=== PATIENT | female | born 1960 | race Caucasian/White ===

== ENCOUNTER 2023-04-18 05:00 | Inpatient (IN) | payer BC ==
[2023-04-12 12:20] LABS: BASOPHILS # (AUTO) 0.1 K/uL (0.0-0.2); BASOPHILS % (AUTO) 1.4 % (0.0-2.0); EOSINOPHILS # (AUTO) 0.1 K/uL (0.0-0.4); EOSINOPHILS % (AUTO) 2.3 % (0.0-4.0); HEMATOCRIT 33.3 % (36-48); HEMOGLOBIN 10.8 g/dL (12.0-16.0); LYMPHOCYTES % (AUTO) 20.4 % (20.5-51.5); MEAN CORPUSCULAR HEMOGLOBIN 29 pg (27-31); MEAN CORPUSCULAR HGB CONC 32 % (32-36); MEAN CORPUSCULAR VOLUME 90 fL (79.0-98.0); MONOCYTES # (AUTO) 0.6 K/uL (0.0-1.0); NEUTROPHILS # (AUTO) 3.1 K/uL (1.8-7.7); NEUTROPHILS % (AUTO) 62.9 % (40.0-70.0); PLATELET COUNT (AUTO) 189 K/uL (130-430); RED CELL DISTRIBUTION WIDTH 12.9 % (9.0-15.0); WHITE BLOOD COUNT (AUTO) 4.9 K/uL (4.8-10.8)
[2023-04-12 12:39] LABS: PROTHROMBIN TIME 10.5 SECS (9.5-12.5)
[2023-04-12 12:40] LABS: ALBUMIN 3.7 g/dL (3.4-4.8); CALCIUM 10.8 mg/dL (8.4-11.0); CREATININE 7.11 mg/dL (0.55-1.30); POTASSIUM 3.5 mmol/L (3.5-5.1); TOTAL BILIRUBIN 0.5 mg/dL (0.0-1.0); TOTAL PROTEIN, SERUM 6.4 g/dL (6.4-8.3)
[~2023-04-18] VITALS: Ht 170.2 cm; Wt 68.0 kg
[2023-04-18] VITALS (8 sets, daily range): BP systolic 112–152; PULSE 48–106; RESP 16–18; TEMP 97–98; O2SAT 95–98
[2023-04-18] MEDS ORDERED: CELECOXIB 100 MG CAPSULE ONE (05:20)
[2023-04-18] MEDS ORDERED: SCOPOLAMINE HYDROBROMIDE 1 MG PATCH .72 H (TRANSDERM-SCOP) TD ONE ×2 (05:32→07:00)
[2023-04-18] MEDS ORDERED: ceFAZolin SODIUM 2 GM in D5W 100 ML IV ONE (07:00)
[2023-04-18] MEDS ORDERED: CELECOXIB 100 MG CAPSULE PO ONE (07:00)
[2023-04-18] MEDS ORDERED: GABAPENTIN 400 MG CAPSULE PO ONE (07:00)
[2023-04-18] MEDS ORDERED: oxyCODONE HCL 10 MG TAB.ER.12H PO ONE ×2 (07:00→07:12)
[2023-04-18] MEDS ORDERED: TRANEXAMIC ACID 1,000 MG/10 ML VIAL ONE (07:15)
[2023-04-18] MEDS ORDERED: DEXAMETHASONE SOD PHOSPHATE 4 MG/ML VIAL ONE (07:15)
[2023-04-18] MEDS ORDERED: KETOROLAC TROMETHAMINE 30 MG VIAL ONE (07:15)
[2023-04-18] MEDS ORDERED: GLYCOPYRROLATE 0.2 MG/ML VIAL ONE (07:15)
[2023-04-18] MEDS ORDERED: ONDANSETRON HCL 4 MG/2 ML VIAL ONE (07:15)
[2023-04-18] MEDS ORDERED: WATER FOR IRRIGATION,STERILE 1,000 ML IRRIG.SOLN IR ONE (07:15)
[2023-04-18] MEDS ORDERED: MIDAZOLAM HCL/PF 2 MG/2 ML SYRINGE ONE (07:15)
[2023-04-18] MEDS ORDERED: BUPIVACAINE /PF 0.5% 30 ML VIAL ONE (07:15)
[2023-04-18] MEDS ORDERED: MORPHINE SULFATE 10MG/10ML PF AMP ONE (07:15)
[2023-04-18] MEDS ORDERED: BUPIVACAINE /PF 0.75% 10 ML VIAL INJ ONE (07:15)
[2023-04-18] MEDS ORDERED: NS 1000 ML IV.SOLN IV ONE (07:15)
[2023-04-18] MEDS ORDERED: VANCOMYCIN HCL 1000 MG/VIAL IV ONE (07:15)
[2023-04-18] MEDS ORDERED: NS IRRIG SOLN 1000 ML IR ONE (07:15)
[2023-04-18] MEDS ORDERED: METOCLOPRAMIDE HCL 10 MG/2 ML VIAL IVP PRN ×2 (08:30→09:45)
[2023-04-18] MEDS ORDERED: HYDROmorphone 1 MG/ML INJ. CARTRIDGE IVP PRN ×5 (08:30→11:00)
[2023-04-18] MEDS ORDERED: ONDANSETRON HCL 4 MG/2 ML VIAL IVP PRN ×2 (08:30→11:45)
[2023-04-18] MEDS ORDERED: NALOXONE HCL 0.4 MG/ML AMP (NARCAN) IVP PRN (08:30)
[2023-04-18] MEDS ORDERED: NACL 0.9% 1,000 ML IV SCH (08:30)
[2023-04-18] MEDS ORDERED: DIPHENHYDRAMINE INJ 50 MG/ML VIAL IVP PRN (08:30)
[2023-04-18] MEDS ORDERED: MEPERIDINE HCL/PF 25 MG/ML DISP.SYRIN IVP PRN (08:30)
[2023-04-18] MEDS ORDERED: MIDAZOLAM HCL 2 MG/2 ML VIAL (VERSED) IVP PRN (08:30)
[2023-04-18] MEDS ORDERED: DIPHENHYDRAMINE HCL 25 MG CAPSULE PO PRN (09:45)
[2023-04-18] MEDS ORDERED: LACTULOSE 20 GM/30 ML UDC PO PRN (09:45)
[2023-04-18] MEDS ORDERED: BISACODYL 10 MG/SUPPOSITORY RC PRN (09:45)
[2023-04-18] MEDS ORDERED: DIAZ2TAB3 PO (09:56)
[2023-04-18] MEDS ORDERED: CALC0.5C11 PO (09:56)
[2023-04-18] MEDS ORDERED: HYDR200T80 PO (09:56)
[2023-04-18] MEDS ORDERED: LOSA-415 PO (09:56)
[2023-04-18] MEDS ORDERED: TOCI80VI IV (09:56)
[2023-04-18] MEDS ORDERED: traMADol HCL HCL 50 MG TABLET (ULTRAM) PO PRN (11:00)
[2023-04-18] MEDS ORDERED: LORATADINE 10 MG TABLET PO PRN (11:00)
[2023-04-18] MEDS ORDERED: DIAZEPAM 2 MG TABLET (VALIUM) PO PRN (13:45)
[2023-04-18] MEDS: ACETAMINOPHEN 500 MG TABLET PO SCH ×2 (14:12→21:10)
[2023-04-18] MEDS: KETOROLAC TROMETHAMINE 10 MG TABLET (TORADOL) PO SCH ×2 (15:00→23:00)
[2023-04-18] MEDS: ceFAZolin SODIUM 2 GM in D5W 50 ML IV SCH ×2 (15:15→22:32)
[2023-04-18] MEDS ORDERED: NON-FORMULARY MEDICATION (Losartan Potassium (Cozaar) 100 MG) PO SCH (21:00)
[2023-04-18] MEDS: SENNOSIDES/DOCUSATE SODIUM 1 TAB TABLET(SENOKOT-S) PO SCH (21:03)
[2023-04-18] MEDS: LOSARTAN POTASSIUM 50 MG TABLET (COZAAR) PO SCH (21:05)
[2023-04-19] VITALS (7 sets, daily range): BP systolic 107–144; PULSE 47–61; RESP 15–19; TEMP 96.9–98.9; O2SAT 96–98
[2023-04-19 05:08] LABS: BASOPHILS % (AUTO) 0.1 % (0.0-2.0); EOSINOPHILS % (AUTO) 0.1 % (0.0-4.0); HEMATOCRIT 28.7 % (36-48); HEMOGLOBIN 9.2 g/dL (12.0-16.0); LYMPHOCYTES # (AUTO) 0.7 K/uL (1.0-5.5); LYMPHOCYTES % (AUTO) 9.4 % (20.5-51.5); MEAN CORPUSCULAR HEMOGLOBIN 29 pg (27-31); MEAN CORPUSCULAR HGB CONC 32 % (32-36); MEAN CORPUSCULAR VOLUME 90 fL (79.0-98.0); MONOCYTES # (AUTO) 0.7 K/uL (0.0-1.0); MONOCYTES % (AUTO) 9.5 % (1.7-9.3); NEUTROPHILS # (AUTO) 5.9 K/uL (1.8-7.7); NEUTROPHILS % (AUTO) 80.9 % (40.0-70.0); PLATELET COUNT (AUTO) 140 K/uL (130-430); WHITE BLOOD COUNT (AUTO) 7.3 K/uL (4.8-10.8)
[2023-04-19 05:34] LABS: CALCIUM 9.5 mg/dL (8.4-11.0); CREATININE 6.55 mg/dL (0.55-1.30); POTASSIUM 4.3 mmol/L (3.5-5.1)
[2023-04-19] MEDS: ACETAMINOPHEN 500 MG TABLET PO SCH ×3 (06:00→21:38)
[2023-04-19] MEDS: KETOROLAC TROMETHAMINE 10 MG TABLET (TORADOL) PO SCH (06:04)
[2023-04-19] MEDS: ceFAZolin SODIUM 2 GM in D5W 50 ML IV SCH (06:06)
[2023-04-19] MEDS: oxyCODONE HCL 5 MG TABLET PO PRN ×4 (06:08→20:20)
[2023-04-19] MEDS ORDERED: CALCITRIOL 0.5 MCG PO SCH (09:00)
[2023-04-19] MEDS: ASPIRIN 81 MG TAB.CHEW PO SCH ×2 (09:01→20:19)
[2023-04-19] MEDS: calcitrioL 0.25 MCG CAPSULE PO SCH (09:01)
[2023-04-19] MEDS: SENNOSIDES/DOCUSATE SODIUM 1 TAB TABLET(SENOKOT-S) PO SCH ×2 (09:05→20:19)
[2023-04-19] MEDS: CELECOXIB 200 MG CAPSULE PO SCH (11:12)
[2023-04-19] MEDS ORDERED: cephALEXin 500 MG CAPSULE PO ONE (20:00)
[2023-04-19] MEDS: LOSARTAN POTASSIUM 50 MG TABLET (COZAAR) PO SCH (20:19)
[2023-04-19] MEDS ORDERED: TAMSULOSIN HCL 0.4 MG CAP PO SCH (21:00)
[2023-04-20 00:24] VITALS: BP_SYST 118; PULSE 61; RESP 18; TEMP 98; O2SAT 98
[2023-04-20] MEDS: CELECOXIB 200 MG CAPSULE PO SCH (00:39)
[2023-04-20 05:19] LABS: BASOPHILS % (AUTO) 0.5 % (0.0-2.0); EOSINOPHILS # (AUTO) 0.2 K/uL (0.0-0.4); EOSINOPHILS % (AUTO) 3.1 % (0.0-4.0); HEMATOCRIT 25.1 % (36-48); HEMOGLOBIN 8.2 g/dL (12.0-16.0); LYMPHOCYTES # (AUTO) 0.9 K/uL (1.0-5.5); MEAN CORPUSCULAR HEMOGLOBIN 29 pg (27-31); MEAN CORPUSCULAR HGB CONC 33 % (32-36); MEAN CORPUSCULAR VOLUME 89 fL (79.0-98.0); MONOCYTES # (AUTO) 0.6 K/uL (0.0-1.0); MONOCYTES % (AUTO) 11.5 % (1.7-9.3); NEUTROPHILS # (AUTO) 3.4 K/uL (1.8-7.7); NEUTROPHILS % (AUTO) 66.9 % (40.0-70.0); PLATELET COUNT (AUTO) 121 K/uL (130-430); RED BLOOD CELL COUNT(AUTO) 2.82 MIL/uL (4.2-6.2); RED CELL DISTRIBUTION WIDTH 12.9 % (9.0-15.0); WHITE BLOOD COUNT (AUTO) 5.2 K/uL (4.8-10.8)
[2023-04-20 05:41] LABS: CALCIUM 9.4 mg/dL (8.4-11.0); CREATININE 6.6 mg/dL (0.55-1.30); POTASSIUM 3.8 mmol/L (3.5-5.1)
[2023-04-20 08:00] VITALS: BP_SYST 94; PULSE 70; RESP 16; TEMP 97.9; O2SAT 97
[2023-04-20] MEDS: SENNOSIDES/DOCUSATE SODIUM 1 TAB TABLET(SENOKOT-S) PO SCH (08:17)
[2023-04-20] MEDS: calcitrioL 0.25 MCG CAPSULE PO SCH (08:17)
[2023-04-20] MEDS: ASPIRIN 81 MG TAB.CHEW PO SCH (08:17)
[2023-04-20] MEDS: cephALEXin 500 MG CAPSULE PO SCH ×2 (08:17→14:35)
[2023-04-20] MEDS: oxyCODONE HCL 5 MG TABLET PO PRN (08:20)
[2023-04-20] MEDS ORDERED: PANTOPRAZOLE SODIUM 40 MG TAB PO SCH (09:00)
[2023-04-20 09:25] VITALS: O2SAT 97
[2023-04-20 12:23] VITALS: BP_SYST 110; PULSE 65; RESP 17; TEMP 98.2; O2SAT 98
[2023-04-20 16:43] VITALS: BP_SYST 118; PULSE 65; RESP 18; TEMP 98.2; O2SAT 96
[2023-04-20 16:57] VITALS: BP_SYST 101; PULSE 69; RESP 16; TEMP 98; O2SAT 97
== END 2023-04-20 15:20 | disposition home health service (06) | DRG 470 ==
LOC: SMU 05:00 → SOR 05:00 → EDSTATUS 07:30 → SOR 11:36 → SMU 11:38
PROVIDERS: ADMIT Student in an Organized Health Care Education/Training Program; ATTEND Student in an Organized Health Care Education/Training Program
PROC: 0SRD0J9 Replacement of Left Knee Joint with Synthetic Substitute, Cemented, Open Approach (ICD-10-PCS; principal; 2023-04-18 07:27)
DX: M17.12 Unilateral primary osteoarthritis, left knee (principal); Q61.3 Polycystic kidney, unspecified; I12.0 Hypertensive chronic kidney disease with stage 5 chronic kidney disease or end stage renal disease; N18.5 Chronic kidney disease, stage 5; Z88.6 Allergy status to analgesic agent; Z88.2 Allergy status to sulfonamides
CPT/HCPCS: 36415; 71046-TC; 73560-TC; 80048; 80053; 83970; 85025; 85610-TC; 85730-TC; 87081; 88305; 88311; 96379; 97110-GP; 97116-GP; 97530-GP; C1713; C1776; J1100; J1885; J2274; J2405; J3370; J3465; J3490; J7030; J7060

== ENCOUNTER 2023-04-29 10:08 | Emergency (ER) | payer BC ==
[~2023-04-29] VITALS: Ht 170.2 cm; Wt 65.8 kg
[~2023-04-29 10:08] MED LIST: CALC0.5C11 PO; DIAZ2TAB3 PO; HYDR200T80 PO; LOSA-415 PO; TOCI80VI IV
[2023-04-29 10:12] VITALS: BP_SYST 126; PULSE 80; RESP 20; TEMP 98.3; O2SAT 95
[2023-04-29] MEDS ORDERED: MORPHINE 4 MG INJ. 4 MG/ML VIAL IVP ONE (10:15)
[2023-04-29 10:56] LABS: BASOPHILS % (AUTO) 0.4 % (0.0-2.0); EOSINOPHILS % (AUTO) 0.3 % (0.0-4.0); HEMATOCRIT 27.8 % (36-48); HEMOGLOBIN 9.1 g/dL (12.0-16.0); LYMPHOCYTES # (AUTO) 0.5 K/uL (1.0-5.5); MEAN CORPUSCULAR HEMOGLOBIN 29 pg (27-31); MEAN CORPUSCULAR HGB CONC 33 % (32-36); MEAN CORPUSCULAR VOLUME 88 fL (79.0-98.0); MONOCYTES % (AUTO) 9.3 % (1.7-9.3); PLATELET COUNT (AUTO) 249 K/uL (130-430); RED BLOOD CELL COUNT(AUTO) 3.16 MIL/uL (4.2-6.2); RED CELL DISTRIBUTION WIDTH 13.1 % (9.0-15.0); WHITE BLOOD COUNT (AUTO) 10.6 K/uL (4.8-10.8)
[2023-04-29 11:17] LABS: CALCIUM 10.5 mg/dL (8.4-11.0); CREATININE 5.77 mg/dL (0.55-1.30); POTASSIUM 3.6 mmol/L (3.5-5.1)
[2023-04-29 11:21] LABS: ALBUMIN 3.4 g/dL (3.4-4.8); TOTAL BILIRUBIN 0.8 mg/dL (0.0-1.0); TOTAL PROTEIN, SERUM 6.4 g/dL (6.4-8.3); URIC ACID 7.6 mg/dL (2.4-7.0)
[2023-04-29] MEDS ORDERED: PRED20TA PO (12:19)
[2023-04-29 12:36] VITALS: BP_SYST 131; PULSE 75; RESP 19; TEMP 97.9; O2SAT 100
== END 2023-04-29 12:36 | disposition home or self-care (01) ==
LOC: SED 10:08
DX: M10.9 Gout, unspecified (principal); M25.475 Effusion, left foot; Z88.2 Allergy status to sulfonamides; Z88.6 Allergy status to analgesic agent; Z79.899 Other long term (current) drug therapy
CPT/HCPCS: 99285; 96374; 93971; 80053; 84550; 85025; 36415; J2270

== ENCOUNTER 2024-02-14 14:52 | Inpatient (IN) | payer BC ==
[~2024-02-14] VITALS: Ht 167.6 cm; Wt 66.7 kg
[~2024-02-14 14:52] MED LIST changes: +PRED20TA PO
[2024-02-14 15:04] VITALS: BP_SYST 151; PULSE 106; RESP 18; TEMP 97.6; O2SAT 98
[2024-02-14] MEDS: NACL 0.9% 1,000 ML IV ONE ×3 (16:35→20:43)
[2024-02-14 17:12] LABS: BASOPHILS # (AUTO) 0.1 K/uL (0.0-0.2); EOSINOPHILS % (AUTO) 0.1 % (0.0-4.0); HEMATOCRIT 33.1 % (36-48); HEMOGLOBIN 10.9 g/dL (12.0-16.0); LYMPHOCYTES # (AUTO) 0.9 K/uL (1.0-5.5); LYMPHOCYTES % (AUTO) 13.8 % (20.5-51.5); MEAN CORPUSCULAR HEMOGLOBIN 29 pg (27-31); MEAN CORPUSCULAR HGB CONC 33 % (32-36); MEAN CORPUSCULAR VOLUME 89 fL (79.0-98.0); MONOCYTES # (AUTO) 0.5 K/uL (0.0-1.0); MONOCYTES % (AUTO) 7.8 % (1.7-9.3); NEUTROPHILS # (AUTO) 5.3 K/uL (1.8-7.7); NEUTROPHILS % (AUTO) 77.3 % (40.0-70.0); PLATELET COUNT (AUTO) 211 K/uL (130-430); RED BLOOD CELL COUNT(AUTO) 3.71 MIL/uL (4.2-6.2); RED CELL DISTRIBUTION WIDTH 14.9 % (9.0-15.0); WHITE BLOOD COUNT (AUTO) 6.9 K/uL (4.8-10.8)
[2024-02-14 18:01] LABS: BILIRUBIN,URINE NEGATIVE (NEGATIVE); BLOOD, URINE 1+ (NEGATIVE); CLARITY/URINE CLEAR (CLEAR); COLOR,URINE YELLOW (YELLOW); GLUCOSE,URINE NEGATIVE (NEGATIVE); KETONES,URINE TRACE (NEGATIVE); LEUKOCYTE ESTERASE ,URINE TRACE (NEGATIVE); NITRITE, URINE NEGATIVE (NEGATIVE); PROTEIN URINE 1+ (NEGATIVE); UROBILINOGEN,URINE 0.2 (0.2-1.0)
[2024-02-14 18:21] LABS: ANION GAP 20 (5-15); CALCIUM 9.7 mg/dL (8.4-11.0); CARBON DIOXIDE 14 mmol/L (23-29); CHLORIDE 109 mmol/L (98-107); CREATININE 5.02 mg/dL (0.55-1.30); GFR AFRICAN AMERICAN 11 mL/min (>90); GLUCOSE 83 mg/dL (74-106); POTASSIUM 4.2 mmol/L (3.5-5.1); SODIUM SERUM 143 mmol/L (136-145); UREA NITROGEN, BLOOD 45 mg/dL (8-21)
[2024-02-14 18:24] LABS: ALCOHOL, BLOOD < 3 mg/dL (<10); GFR NON AFRICAN-AMERICAN 9 mL/min (>90)
[2024-02-14 18:49] LABS: BARBITURATE, URINE NEGATIVE (NEG <=200)
[2024-02-14 18:50] LABS: BENZODIAZEPINE, URINE POSITIVE (NEG <=150); CANNABINOID, URINE NEGATIVE (NEG <=50); COCAINE, URINE NEGATIVE (NEG <=150); METHAMPHETAMINES SCREEN,URINE NEGATIVE (NEG <=500); OPIATE, URINE POSITIVE (NEG <=100); PHENCYCLIDINE SCREEN,URINE NEGATIVE (NEG <=25); UR TRICYCLIC ANTIDEPRESSANTS NEGATIVE (NEG <=300); URINE AMPHETAMINE NEGATIVE (NEG <=500); URINE METHADONE NEGATIVE (NEG <=200); URINE OXYCODONE SCREEN NEGATIVE (NEG <=100)
[2024-02-14 19:08] LABS: BACTERIA,URINE FEW /HPF (None Seen)
[2024-02-14 19:09] LABS: MUCUS,URINE 1+ /LPF (None Seen)
[2024-02-14 19:55] LABS: BARBITURATE, URINE NEGATIVE (NEG <=200); BENZODIAZEPINE, URINE POSITIVE (NEG <=150); CANNABINOID, URINE NEGATIVE (NEG <=50); COCAINE, URINE NEGATIVE (NEG <=150); METHAMPHETAMINES SCREEN,URINE NEGATIVE (NEG <=500); OPIATE, URINE POSITIVE (NEG <=100); PHENCYCLIDINE SCREEN,URINE NEGATIVE (NEG <=25); UR TRICYCLIC ANTIDEPRESSANTS NEGATIVE (NEG <=300); URINE AMPHETAMINE NEGATIVE (NEG <=500); URINE METHADONE NEGATIVE (NEG <=200); URINE OXYCODONE SCREEN NEGATIVE (NEG <=100)
[2024-02-14] MEDS: cefTRIAXone 1 GM IVPB PREMIX 50 ML IV ONE (20:41)
[2024-02-14] MEDS: HALOPERIDOL LACTATE 5 MG/ML VIAL IM ONE (20:42)
[2024-02-14] MEDS: LORazepam 2 MG/ML VIAL IVP ONE (21:23)
[2024-02-15] MEDS: cefTRIAXone 1 GM IVPB PREMIX 50 ML IV ONE (00:49)
[2024-02-15] MEDS ORDERED: LOSA100T24 PO (07:31)
[2024-02-15] MEDS ORDERED: BACL5TAB PO (07:31)
[2024-02-15] MEDS ORDERED: TOCI162P SUBCUT (08:54)
[2024-02-15 10:30] VITALS: O2SAT 95
[2024-02-15 11:49] VITALS: BP_SYST 119; PULSE 83; RESP 16; TEMP 99.1
[2024-02-15] MEDS ORDERED: LORazepam 2 MG/ML VIAL IVP PRN (12:00)
[2024-02-15] MEDS ORDERED: ONDANSETRON HCL 4 MG/2 ML VIAL IVP PRN (12:00)
[2024-02-15] MEDS ORDERED: BACLOFEN 10 MG TABLET PO PRN (12:45)
[2024-02-15 15:11] LABS: MEAN CORPUSCULAR HEMOGLOBIN 30 pg (27-31); MEAN CORPUSCULAR VOLUME 89 fL (79.0-98.0); WHITE BLOOD COUNT (AUTO) 7.4 K/uL (4.8-10.8)
[2024-02-15 15:13] LABS: BASOPHILS # (AUTO) 0.1 K/uL (0.0-0.2); EOSINOPHILS % (AUTO) 0.7 % (0.0-4.0); HEMATOCRIT 28.2 % (36-48); HEMOGLOBIN 9.3 g/dL (12.0-16.0); LYMPHOCYTES # (AUTO) 0.8 K/uL (1.0-5.5); LYMPHOCYTES % (AUTO) 11.2 % (20.5-51.5); MEAN CORPUSCULAR HGB CONC 33 % (32-36); MONOCYTES # (AUTO) 0.8 K/uL (0.0-1.0); MONOCYTES % (AUTO) 10.4 % (1.7-9.3); NEUTROPHILS # (AUTO) 5.7 K/uL (1.8-7.7); NEUTROPHILS % (AUTO) 76.7 % (40.0-70.0); PLATELET COUNT (AUTO) 144 K/uL (130-430); RED BLOOD CELL COUNT(AUTO) 3.15 MIL/uL (4.2-6.2); RED CELL DISTRIBUTION WIDTH 14.3 % (9.0-15.0)
[2024-02-15 15:22] LABS: ALBUMIN 3.3 g/dL (3.4-4.8); CALCIUM 8.8 mg/dL (8.4-11.0); CREATININE 5.29 mg/dL (0.55-1.30); POTASSIUM 3.7 mmol/L (3.5-5.1); TOTAL BILIRUBIN 0.4 mg/dL (0.0-1.0); TOTAL PROTEIN, SERUM 5.7 g/dL (6.4-8.3)
[2024-02-15 17:16] VITALS: BP_SYST 108; PULSE 97; RESP 18; TEMP 99.3; O2SAT 97
[2024-02-15] MEDS: LOSARTAN POTASSIUM 50 MG TABLET (COZAAR) PO ONE (17:20)
[2024-02-15] MEDS: cefTRIAXone 1 GM IVPB PREMIX 50 ML IV SCH (17:21)
[2024-02-15] MEDS ORDERED: *HEPARIN PER PHARMACY XX ONE (19:00)
[2024-02-15] MEDS ORDERED: HEPARIN SODIUM,PORCINE 2000 UNITS/0.4 ML BOLUS IVP PRN (19:00)
[2024-02-15] MEDS ORDERED: HEPARIN SODIUM,PORCINE 3000 UNITS/0.6 ML BOLUS IVP PRN (19:00)
[2024-02-15 20:00] VITALS: BP_SYST 105; PULSE 103; RESP 18; TEMP 98.9; O2SAT 98
[2024-02-15] MEDS: HEPARIN 25,000 UNITS in 250 ML PREMIX IV PRN (21:45)
[2024-02-15] MEDS: HEPARIN SODIUM,PORCINE 5,000 UNITS/ML VIAL IVP ONE (21:45)
[2024-02-16] VITALS: BP_SYST 104; PULSE 93; RESP 16; TEMP 98.6; O2SAT 96
[2024-02-16 04:28] LABS: BASOPHILS # (AUTO) 0.1 K/uL (0.0-0.2); BASOPHILS % (AUTO) 0.7 % (0.0-2.0); EOSINOPHILS # (AUTO) 0.1 K/uL (0.0-0.4); EOSINOPHILS % (AUTO) 1.1 % (0.0-4.0); HEMATOCRIT 28.5 % (36-48); HEMOGLOBIN 9.1 g/dL (12.0-16.0); LYMPHOCYTES # (AUTO) 0.9 K/uL (1.0-5.5); MEAN CORPUSCULAR HEMOGLOBIN 29 pg (27-31); MEAN CORPUSCULAR HGB CONC 32 % (32-36); MEAN CORPUSCULAR VOLUME 90 fL (79.0-98.0); MONOCYTES # (AUTO) 0.9 K/uL (0.0-1.0); MONOCYTES % (AUTO) 13.1 % (1.7-9.3); NEUTROPHILS # (AUTO) 5.2 K/uL (1.8-7.7); NEUTROPHILS % (AUTO) 73.1 % (40.0-70.0); PLATELET COUNT (AUTO) 131 K/uL (130-430); RED BLOOD CELL COUNT(AUTO) 3.18 MIL/uL (4.2-6.2); RED CELL DISTRIBUTION WIDTH 14.5 % (9.0-15.0); WHITE BLOOD COUNT (AUTO) 7.1 K/uL (4.8-10.8)
[2024-02-16 04:35] LABS: CALCIUM 8.5 mg/dL (8.4-11.0); CREATININE 5.33 mg/dL (0.55-1.30); PHOSPHORUS 3.9 mg/dL (2.7-4.5); POTASSIUM 3.6 mmol/L (3.5-5.1)
[2024-02-16 07:27] VITALS: BP_SYST 105; PULSE 87; RESP 16; TEMP 97.9; O2SAT 96
[2024-02-16] MEDS: LOSARTAN POTASSIUM 50 MG TABLET (COZAAR) PO SCH (09:14)
[2024-02-16] MEDS: CARVEDILOL 6.25 MG TABLET (COREG) PO ONE (10:15)
[2024-02-16 11:38] VITALS: BP_SYST 116; PULSE 87; RESP 16; TEMP 98; O2SAT 99
[2024-02-16] MEDS: VANCOMYCIN HCL 750 MG in NS 250 ML IV SCH (15:04)
[2024-02-16 16:10] VITALS: BP_SYST 123; PULSE 100; RESP 18; TEMP 98.6; O2SAT 98
[2024-02-16 20:00] VITALS: BP_SYST 114; PULSE 93; RESP 16; TEMP 97.4; O2SAT 95
[2024-02-16] MEDS: CARVEDILOL 6.25 MG TABLET (COREG) PO SCH (20:45)
[2024-02-16] MEDS: DIPHENHYDRAMINE HCL 50 MG CAPSULE PO PRN (20:45)
[2024-02-16 22:59] VITALS: BP_SYST 91; PULSE 75; RESP 18; TEMP 97.6; O2SAT 95
[2024-02-17] MEDS ORDERED: LOSARTAN POTASSIUM 25 MG TABLET PO SCH (09:00)
== END 2024-02-17 01:11 | DRG 91 ==
LOC: SED 14:52 → STU 02-15 01:32
PROVIDERS: ADMIT Preventive Medicine Preventive Medicine/Occupational Environmental Medicine; ATTEND Preventive Medicine Preventive Medicine/Occupational Environmental Medicine
DX: G92.8 Other toxic encephalopathy (principal); I21.4 Non-ST elevation (NSTEMI) myocardial infarction; N18.6 End stage renal disease; N39.0 Urinary tract infection, site not specified; I12.0 Hypertensive chronic kidney disease with stage 5 chronic kidney disease or end stage renal disease; N17.9 Acute kidney failure, unspecified; R78.81 Bacteremia; D84.9 Immunodeficiency, unspecified; D63.1 Anemia in chronic kidney disease; F41.9 Anxiety disorder, unspecified; I25.10 Atherosclerotic heart disease of native coronary artery without angina pectoris; Z79.01 Long term (current) use of anticoagulants; Z79.899 Other long term (current) drug therapy; Z88.2 Allergy status to sulfonamides; Z88.8 Allergy status to other drugs, medicaments and biological substances
CPT/HCPCS: 36415; 70450-TC; 71045; 76770; 80048; 80053; 80307; 81000; 81001; 81015; 82140; 83605; 83735; 84100; 84484; 85025; 85651; 85730; 87040; 87086; 93005; 93306; 99285; G0378; G0482; J0696; J1630; J1644; J2060; J7050; Q0163